=== PATIENT | female | born 1990 | race Caucasian/White ===

== ENCOUNTER 2016-07-01 13:23 | Emergency (ER) | payer OTHER ==
[2016-07-01 14:21] VITALS: RESP 18
[2016-07-01] MEDS ORDERED: SODIUM CHLORIDE 0.9% 1,000 ML IV STA (14:56)
[2016-07-01] MEDS ORDERED: ONDANSETRON 4 MG/2 ML VIAL IVP STA (15:04)
--- NOTE | 2016-07-01 15:04 | ED ---
General Adult HPI - General Chief complaint: Headache Stated complaint: Headache,Vomiting Time Seen by Provider: 07/01/16 14:44 Source: patient, RN notes reviewed Mode of arrival: ambulatory Limitations: no limitations - History of Present Illness Initial comments: Patient 26-year-old female who presents emergency room today with multiple point. She does admit to history of migraine headaches. States that this morning approximately around noon had a episode of a migraine headache. States she was in the shower having a intense sharp pain to the right side of her head. States that she did have to take ibuprofen. She states she laid down. She states headache is gone at this time. She does admit that she's also been feeling very fatigued. She states she fells rundown at times. Does admit that she drinks a lot of caffeine. States been trying to increased water intake over the last 2 weeks. States she's felt nauseated at times. States feels somewhat "out of it" at this time. States all the symptoms have been off and on over the last several months. She denies any complaints symptoms. Patient denies any recent fever, chills, shortness of breath, chest pain, back pain, abdominal pain, nausea or vomiting, numbness or tingling, dysuria or hematuria, constipation or diarrhea, visual changes, or any other complaints. - Related Data Home Medications Medication Instructions Recorded Confirmed Mesalamine [Lialda] 1.2 gm PO DAILY 07/01/16 07/01/16 Allergies Allergy/AdvReac Type Severity Reaction Status Date / Time No Known Allergies Allergy Verified 07/01/16 15:10 Review of Systems ROS Statement: Those systems with pertinent positive or pertinent negative responses have been documented in the HPI. ROS Other: All systems not noted in ROS Statement are negative. Past Medical History Additional Past Medical History / Comment(s): chrons, headache, History of Any Multi-Drug Resistant Organisms: None Reported Past Surgical History: Adenoidectomy, Tonsillectomy Additional Past Surgical History / Comment(s): right tube removed, D&C, Past Psychological History: Anxiety Smoking Status: Never smoker Past Alcohol Use History: None Reported Past Drug Use History: None Reported General Exam - General Exam Comments Initial Comments: General: The patient is awake and alert, in no distress, and does not appear acutely ill. Eye: Pupils are equal, round and reactive to light, extra-ocular movements are intact. No nystagmus. There is normal conjunctiva bilaterally. No signs of icterus. Ears, nose, mouth and throat: There are moist mucous membranes and no oral lesions. Neck: The neck is supple, there is no tenderness or JVD. Cardiovascular: There is a regular rate and rhythm. No murmur, rub or gallop is appreciated. Respiratory: Lungs are clear to auscultation, respirations are non-labored, breath sounds are equal. No wheezes, stridor, rales, or rhonchi. Gastrointestinal: Soft, non-distended, non-tender abdomen without masses or organomegaly noted. There is no rebound or guarding present. No CVA tenderness. Bowel sounds are unremarkable. Musculoskeletal: Normal ROM, no tenderness. Strength 5/5. Sensation intact. Pulses equal bilaterally 2+. Neurological: A&O x 3. CN II-XII intact, There are no obvious motor or sensory deficits. Coordination appears grossly intact. Speech is normal. Skin: Skin is warm and dry and no rashes or lesions are noted. Psychiatric: Cooperative, appropriate mood & affect, normal judgment. Limitations: no limitations Course Vital Signs 07/01/16 14:15 Temperature 98.4 F Pulse Rate 95 Respiratory 18 Rate Blood Pressure 117/78 O2 Sat by Pulse 99 Oximetry Medical Decision Making - Medical Decision Making Patient reexamined at this time shows no signs of distress. She denies any headache. Denies any complaints. Patient's labs been reviewed and are unremarkable. Results were discussed with the patient. Feeling better after IV fluids. Patient is advised to increase oral fluids. Advised follow-up the family doctor or neurologist. Advised return to emergency room if any symptoms increase worsen or for any other concerns. - Lab Data Result diagrams: 07/01/16 15:20 07/01/16 15:20 Lab Results 07/01/16 07/01/16 07/01/16 Range/Units 15:20 15:20 15:20 WBC 5.6 (3.8-10.6) k/uL RBC 4.69 (3.80-5.40) m/uL Hgb 13.1 (11.4-16.0) gm/dL Hct 41.2 (34.0-46.0) % MCV 87.8 (80.0-100.0) fL MCH 27.9 (25.0-35.0) pg MCHC 31.7 (31.0-37.0) g/dL RDW 14.5 (11.5-15.5) % Plt Count 141 L (150-450) k/uL Neutrophils % 63 % Lymphocytes % 26 % Monocytes % 5 % Eosinophils % 3 % Basophils % 1 % Neutrophils # 3.6 (1.3-7.7) k/uL Lymphocytes # 1.5 (1.0-4.8) k/uL Monocytes # 0.3 (0-1.0) k/uL Eosinophils # 0.2 (0-0.7) k/uL Basophils # 0.1 (0-0.2) k/uL Sodium 141 (137-145) mmol/L Potassium 4.3 (3.5-5.1) mmol/L Chloride 104 (98-107) mmol/L Carbon Dioxide 26 (22-30) mmol/L Anion Gap 11 mmol/L BUN 13 (7-17) mg/dL Creatinine 0.70 (0.52-1.04) mg/dL Est GFR (MDRD) Af Amer >60 (>60 ml/min/1.73 sqM) Est GFR (MDRD) Non-Af >60 (>60 ml/min/1.73 sqM) Glucose 84 (74-99) mg/dL Calcium 9.4 (8.4-10.2) mg/dL Total Bilirubin 0.7 (0.2-1.3) mg/dL AST 17 (14-36) U/L ALT 25 (9-52) U/L Alkaline Phosphatase 76 (38-126) U/L Total Protein 7.5 (6.3-8.2) g/dL Albumin 4.7 (3.5-5.0) g/dL TSH 1.610 (0.465-4.680) mIU/L Urine Color Urine Appearance (Clear) Urine pH (5.0-8.0) Ur Specific [place] (1.001-1.035) Urine Protein (Negative) Urine Glucose (UA) (Negative) Urine Ketones (Negative) Urine Blood (Negative) Urine Nitrate (Negative) Urine Bilirubin (Negative) Urine Urobilinogen (<2.0) mg/dL Ur Leukocyte Esterase (Negative) Urine RBC (0-5) /hpf Urine WBC (0-5) /hpf Ur Squamous Epith Cells (0-4) /hpf Urine Bacteria (None) /hpf Urine Mucus (None) /hpf Urine HCG, Qual Not Detected (Not Detectd) 07/01/16 Range/Units 15:20 WBC (3.8-10.6) k/uL RBC (3.80-5.40) m/uL Hgb (11.4-16.0) gm/dL Hct (34.0-46.0) % MCV (80.0-100.0) fL MCH (25.0-35.0) pg MCHC (31.0-37.0) g/dL RDW (11.5-15.5) % Plt Count (150-450) k/uL Neutrophils % % Lymphocytes % % Monocytes % % Eosinophils % % Basophils % % Neutrophils # (1.3-7.7) k/uL Lymphocytes # (1.0-4.8) k/uL Monocytes # (0-1.0) k/uL Eosinophils # (0-0.7) k/uL Basophils # (0-0.2) k/uL Sodium (137-145) mmol/L Potassium (3.5-5.1) mmol/L Chloride (98-107) mmol/L Carbon Dioxide (22-30) mmol/L Anion Gap mmol/L BUN (7-17) mg/dL Creatinine (0.52-1.04) mg/dL Est GFR (MDRD) Af Amer (>60 ml/min/1.73 sqM) Est GFR (MDRD) Non-Af (>60 ml/min/1.73 sqM) Glucose (74-99) mg/dL Calcium (8.4-10.2) mg/dL Total Bilirubin (0.2-1.3) mg/dL AST (14-36) U/L ALT (9-52) U/L Alkaline Phosphatase (38-126) U/L Total Protein (6.3-8.2) g/dL Albumin (3.5-5.0) g/dL TSH (0.465-4.680) mIU/L Urine Color Yellow Urine Appearance Cloudy H (Clear) Urine pH 6.0 (5.0-8.0) Ur Specific [place] 1.018 (1.001-1.035) Urine Protein Negative (Negative) Urine Glucose (UA) Negative (Negative) Urine Ketones Negative (Negative) Urine Blood Negative (Negative) Urine Nitrate Negative (Negative) Urine Bilirubin Negative (Negative) Urine Urobilinogen <2.0 (<2.0) mg/dL Ur Leukocyte Esterase Negative (Negative) Urine RBC 1 (0-5) /hpf Urine WBC 2 (0-5) /hpf Ur Squamous Epith Cells 6 H (0-4) /hpf Urine Bacteria Rare H (None) /hpf Urine Mucus Rare H (None) /hpf Urine HCG, Qual (Not Detectd) Disposition Clinical Impression: Lightheaded, Nausea, Migraine Disposition: HOME SELF-CARE Condition: Good Instructions: Acute Headache (ED) Additional Instructions: Please follow-up with family doctor in the next 2 days of symptoms have not improved. Please return to emergency room if the symptoms increase or worsen or for any other concerns. Referrals: None,Stated [Primary Care Provider] - 1-2 days Kelsea Burden MD [REFERRING] - 1-2 days Maricel Fisher MD [STAFF PHYSICIAN] - 1-2 days Time of Disposition: 16:30
[2016-07-01 15:29] LABS: Basophils # (A) 0.1 k/uL (0-0.2); Basophils % (A) 1 %; CHCM 33.2; Eosinophils # (A) 0.2 k/uL (0-0.7); Eosinophils % (A) 3 %; HCT 41.2 % (34.0-46.0); HDW 2.47; HGB 13.1 gm/dL (11.4-16.0); Luc # (Auto) 0.08; Luc % (Auto) 1; Lymphocytes # (A) 1.5 k/uL (1.0-4.8); Lymphocytes % (A) 26 %; MCH 27.9 pg (25.0-35.0); MCHC 31.7 g/dL (31.0-37.0); MCV 87.8 fL (80.0-100.0); Mean Platelet Volume 9.3; Monocytes # (A) 0.3 k/uL (0-1.0); Monocytes % (A) 5 %; Neutrophils # (A) 3.6 k/uL (1.3-7.7); Neutrophils % (A) 63 %; RBC 4.69 m/uL (3.80-5.40); RDW 14.5 % (11.5-15.5); WBC 5.6 k/uL (3.8-10.6); WBC (Perox) 5.97
[2016-07-01 15:33] LABS: Appearance,Urine Cloudy (Clear); Bacteria,Urine Rare /hpf; Bilirubin,Urine Negative (Negative); Glucose,Urine (UA) Negative (Negative); Ketones,Urine Negative (Negative); Leukocyte Esterase,Urine Negative (Negative); Mucus,Urine Rare /hpf; Nitrite,Urine Negative (Negative); Particle Count 5207; Protein,Urine Negative (Negative); RBC,Urine 1 /hpf (0-5); Specific Gravity,Urine 1.018 (1.001-1.035); Squamous Epithelial Cell,Urine 6 /hpf (0-4); UA Billing (MACRO vs. MICRO) MICRO; Urobilinogen,Urine <2.0 mg/dL (<2.0); WBC,Urine 2 /hpf (0-5)
[2016-07-01 15:40] LABS: ALT 25 U/L (9-52); AST 17 U/L (14-36); Alkaline Phosphatase 76 U/L (38-126); Anion Gap 11 mmol/L; Blood Urea Nitrogen 13 mg/dL (7-17); Calcium 9.4 mg/dL (8.4-10.2); Carbon Dioxide 26 mmol/L (22-30); Chloride 104 mmol/L (98-107); Glucose 84 mg/dL (74-99); Non-African American GFR(MDRD) >60 (>60 ml/min/1.73 sqM); Potassium 4.3 mmol/L (3.5-5.1); Sodium 141 mmol/L (137-145); Total Bilirubin 0.7 mg/dL (0.2-1.3); Total Protein 7.5 g/dL (6.3-8.2)
[2016-07-01 16:38] VITALS: BP 114/65; PULSE 86; TEMP 98
== END 2016-07-01 16:37 | disposition home or self-care (01) ==
LOC: EC 13:23
DX: G43.909 Migraine, unspecified, not intractable, without status migrainosus (principal); Z79.899 Other long term (current) drug therapy; K50.90 Crohn's disease, unspecified, without complications
CPT/HCPCS: 36415; 80053; 84443; 85025; 81001; 81025; 96374; 99284; J2405

== ENCOUNTER 2022-04-20 02:32 | Outpatient (CLI) | payer OTHER ==
[2022-04-20] MEDS: LACTATED RINGERS 1,000 ML IV SCH ×4 (03:20→07:55)
[2022-04-20] MEDS ORDERED: BETAMET ACET-BETAMETH SOD PHOS 6 MG/ML MDV IM SCH (03:30)
[2022-04-20 03:38] LABS: Basophils # (A) 0.1 k/uL (0-0.2); Basophils % (A) 1 %; Eosinophils # (A) 0.2 k/uL (0-0.7); Eosinophils % (A) 2 %; HGB 9.9 gm/dL (11.4-16.0); Hypochromasia Slight; Lymphocytes # (A) 1.9 k/uL (1.0-4.8); Lymphocytes % (A) 20 %; MCH 27.6 pg (25.0-35.0); MCV 83.8 fL (80.0-100.0); Mean Platelet Volume 8.8; Monocytes # (A) 0.6 k/uL (0-1.0); Monocytes % (A) 6 %; Neutrophils # (A) 6.6 k/uL (1.3-7.7); Neutrophils % (A) 68 %; Platelet Count 189 k/uL (150-450); Poikilocytosis Slight; RBC 3.58 m/uL (3.80-5.40); RDW 15.8 % (11.5-15.5); WBC 9.6 k/uL (3.8-10.6)
--- NOTE | 2022-04-20 06:40 | US ---
EXAMINATION TYPE: US OB >= 14 wk fetus DATE OF EXAM: 04/20/2022 COMPARISON: None CLINICAL HISTORY: bleeding TECHNIQUE: Transabdominal (TA) GESTATIONAL AGE / DATING Physician Established: (33 weeks/5 days) EDC: 06/03/2022 Dates by LMP: LMP unknown Dates by First Scan: No previous here Dates by Current Scan: (33 weeks/5 days) EDC: 06/03/2022 SURVEY IUP: Single PLACENTA: Anterior PREVIA: No Previa EMETERIO: 16.0 cm Normal CERVICAL LENGTH (transabdominal: norm > 3.0cm): 3.1 cm BIOMETRY PRESENTATION: Breech BPD: 8.4 cm 34 weeks / 0 days HC: 30.7 cm 34 weeks / 2 days AC: 27.8 cm 32 weeks / 0 days FL: 6.7 cm 34 weeks / 3 days ESTIMATED WEIGHT IN GRAMS: 2109 grams ESTIMATED WEIGHT IN LBS/OZ: 4 lbs. 10 oz. WEIGHT PERCENTAGE BASED ON ESTABLISHED DATES: 24% HC/AC: 1.10 Normal FL/AC: 24% Normal HEART RATE: 158 bpm RHYTHM: Normal Single live intrauterine gestation. No cervical thinning. Breech presentation currently. No placenta previa. Estimated amniotic fluid index within normal limits. The biometry measurements congruen t and pelvis within normal limits for expected date of confinement. IMPRESSION: As above.
[2022-04-20 07:53] VITALS: BP 130/73; PULSE 90; RESP 16; TEMP 97.8
--- NOTE | 2022-04-21 09:37 | P.MSEPDOC ---
Presenting Problems - Arrival Data Date of Arrival on Unit: 04/20/22 Time of Arrival on Unit: 02:32 Mode of Transport: Ambulatory - Complaint OB-Reason for Admission/Chief Complaint: Vaginal Bleeding Comment: Patient arrived tonight to triage stating that she had bright red bleeding. that started at 0150. Patient stated that she also had a clot the size larger than a. quarter. Patient sees [facility] Physician and was high risk for Ulcerative. Colitis but is now no longer high risk per patient. Patient denies pain and states she. has had sexual intercourse in the past 24 hours. Medical History - Information : 7 Para: 3 Number of Living Children: 3 - Gestational Age Gestational Age by KATHY (wks/days): 33 Weeks and 5 Days Review of Systems - Review of Systems Constitutional: No problems Breast: No problems ENT: No problems Cardiovascular: No problems Respiratory: No problems Gastrointestinal: No problems Genitourinary: No problems Musculoskeletal: No problems Neurological: No problems Skin: No problems Vital Signs - Temperature Temperature: 97.8 F Temperature Source: Temporal Artery Scan - Pulse Pulse Oximetery Pulse Rate: 90 Pulse Assessment Method: Automatic Cuff - Respirations Respiratory Rate: 16 Oxygen Delivery Method: Room Air O2 Sat by Pulse Oximetry: 99 - Blood Pressure Right Arm Blood Pressure: 130/73 Blood Pressure Mean: 92 Blood Pressure Source: Automatic Cuff Medical Screen Scoring - Assessment - Baby A Baseline FHR: 120 Heart Rate - NICHD Category: Category I (Normal) NST: Reactive Physician Notification - Physician Notified Physician Notified Date: 04/20/22 Physician Notified Time: 03:05 Physician: Dr. Hernandez New Order Received: Yes - Notification Comment Comment: Orders to start IV fluids, CBC, Celestone steroid shot, and monitor patient. [address] Hernandez at bedside 0740 assess pt. orders to discharge patient home pt. is to see her tomorrow and get her 2nd dose of celestone at that time Maternal Triage Index - Maternal Triage Index Presenting for scheduled procedure w/no complaint: No - Stat/Priority 1 Stat Priority 1: No - Urgent/Priority 2 Urgent Priority 2: Yes Provider Notified: Dr. Hernandez Provider Notified Time: 03:05 Criteria Met for Priority 2: pt. is 33weeks and 5 days,c/o bleeding Disposition - Disposition OB Disposition: Physician follow up in office, Discharge to home Discharge Date: 04/20/22 Discharge Time: 07:52 I agree with the RN Medical Screening Exam: Yes Case reviewed; plan agreed upon as documented in EMR&OBIX.: Yes Diagnosis: RELATED CONDITIONS, UNSPECIFIED, THIRD TRIMESTER
== END 2022-04-20 07:52 | disposition home or self-care (01) ==
LOC: FBPOP 02:32
PROVIDERS: ATTEND Obstetrics & Gynecology
DX: O26.893 Other specified pregnancy related conditions, third trimester (principal); Z3A.33 33 weeks gestation of pregnancy; D69.9 Hemorrhagic condition, unspecified
CPT/HCPCS: 59025; 96360; 96361; 96372; 85025; 76805; G0463; J0702; 99215

== ENCOUNTER 2023-01-25 12:39 | Emergency (ER) | payer OTHER ==
--- NOTE | 2023-01-25 13:35 | ED ---
Female Urogenital HPI - General Source: patient, RN notes reviewed Mode of arrival: ambulatory Limitations: no limitations - History of Present Illness MD Complaint: vaginal bleeding, pelvic pain <Ida Chavarria - Last Filed: 01/25/23 13:32> <Yanet Zayas - Last Filed: 01/26/23 20:20> - General Chief complaint: Vaginal Bleeding Stated complaint: vaginal bleeding Time Seen by Provider: 01/25/23 13:32 - History of Present Illness Initial comments: This is a 32-year-old female who presents to the emergency department for vaginal bleeding and pelvic pain. Symptoms started a few days ago. Denies any concern for , as she has a hx of bilateral salpingectomy. Also denies any concern for STDs. Denies any associated nausea or vomiting. (Ida Chavarria) Quick note reviewed: This is a 32-year-old female who presents to the emergency department with a chief complaint of vaginal bleeding and pelvic pain. Patient reports that her last menstrual period started on 01/12/2023. She reports light vaginal bleeding ever since. She is not passing any heavy clots. She does voice that she believes she may be . She denies any dizziness, lightheadedness, shortness of breath, fatigue. Reports bilateral salpingectomy. She denies any concern for STD. She denies any fever, chills, nausea or vomiting, flank pain. (Yanet Zayas) - Related Data Home Medications Medication Instructions Recorded Confirmed No Known Home Medications 04/20/22 04/20/22 Allergies Allergy/AdvReac Type Severity Reaction Status Date / Time No Known Allergies Allergy Verified 01/25/23 13:04 Review of Systems ROS Other: All systems not noted in ROS Statement are negative. <Ida Chavarria - Last Filed: 01/25/23 13:32> ROS Other: All systems not noted in ROS Statement are negative. <Yanet Zayas - Last Filed: 01/26/23 20:20> ROS Statement: Those systems with pertinent positive or pertinent negative responses have been documented in the HPI. Past Medical History Additional Past Medical History / Comment(s): headache, ulverative colitis History of Any Multi-Drug Resistant Organisms: None Reported Past Surgical History: Adenoidectomy, Tonsillectomy Additional Past Surgical History / Comment(s): hilda tube removed, D&C, Past Psychological History: Anxiety Smoking Status: Never smoker Past Alcohol Use History: None Reported Past Drug Use History: None Reported <Ida Chavarria - Last Filed: 01/25/23 13:32> General Exam Limitations: no limitations <Ida Chavarria - Last Filed: 01/25/23 13:32> <Yanet Zayas - Last Filed: 01/26/23 20:20> - General Exam Comments Initial Comments: Visual Physical Exam Vital signs reviewed General: Well-appearing, nontoxic, no acute distress. Head: Normocephalic, atraumatic Eyes: PERRLA, EOMI ENT: Airway patent Chest: Nonlabored breathing Skin: No visual rash, normal skin tone Neuro: Alert and oriented 3 Musculoskeletal: No gross abnormalities I performed the QuickNote portion of this chart. Signed Ida Chavarria PA-C. (Ida Chavarria) General: Alert, in no acute distress Head: atraumatic normocephalic. Eyes PERRL, EOMI intact, mucous membranes moist Respiratory: Lungs clear to auscultation bilaterally Cardiovascular: Rate regular rate and rhythm Abdominal: Soft without guarding or rebound Extremities: Normal inspection with full range of motion and normal capillary refill Neuroogic: alert and oriented 3, CN II-XII intact, able to ambulate with steady gait Skin: warm dry and intact with normal color : external exam is without any rashes, lesions, erythema. Vaginal canal with scant red bloood, no clots. Cervical os is visualized and is closed. There is no cervical motion tenderness for abnormal adnexal tenderness. Pelvic exam performed with Rema galicia RN present. (Yanet Zayas) Course Vital Signs 01/25/23 01/25/23 12:59 16:50 Temperature 98.3 F 97.8 F Pulse Rate 110 H 80 Respiratory 20 18 Rate Blood Pressure 119/77 113/74 O2 Sat by Pulse 95 98 Oximetry Medical Decision Making - Lab Data Result diagrams: 01/25/23 13:57 01/25/23 13:57 <Yanet Zayas - Last Filed: 01/26/23 20:20> - Medical Decision Making Was pt. sent in by a medical professional or institution ([employer], HUMAN RELATIONS MANAGER, urgent care, hospital, or fdc...) When possible be specific @ -[No] Did you speak to anyone other than the patient for history (EMS, parent, family, police, friend...)? What history was obtained from this source @ -[No] Did you review nursing and triage notes (agree or disagree)? Why? @ -[I reviewed and agree with nursing and triage notes] Were old charts reviewed (outside hosp., previous admission, EMS record, old EKG, old radiological studies, urgent care reports/EKG's, fdc records)? Report findings @ -[No old charts were reviewed] Differential Diagnosis (chest pain, altered mental status, abdominal pain women, abdominal pain men, vaginal bleeding, weakness, fever, dyspnea, syncope, headache, dizziness, GI bleed, back pain, seizure, CVA, palpatations, mental health, musculoskeletal)? @ -[not applicable] EKG interpreted by me (3pts min.). @ -[As above] X-rays interpreted by me (1pt min.). @ -[None done] CT interpreted by me (1pt min.). @ -[None done] U/S interpreted by me (1pt. min.). @ Pelvic ultrasound does not reveal any gross abnormality or pelvic pathology What testing was considered but not performed or refused? (CT, X-rays, U/S, labs)? Why? @ -[None] What meds were considered but not given or refused? Why? @ -[None] Did you discuss the management of the patient with other professionals (professionals i.e. [employer], HUMAN RELATIONS MANAGER, lab, RT, psych nurse, social staff worker, mobile application engineer, teacher, electronic intelligence officer, test case developer)? Give summary @ -[No] Was smoking cessation discussed for >3mins.? @ -[No] Was critical care preformed (if so, how long)? @ -[No] Were there social determinants of health that impacted care today? How? (Homelessness, low income, unemployed, alcoholism, drug addiction, transportation, low edu. Level, literacy, decrease access to med. care, longterm, rehab)? @ -[No] Was there de-escalation of care discussed even if they declined (Discuss DNR or withdrawal of care, Hospice)? DNR status @ -[No] What co-morbidities impacted this encounter? (DM, HTN, Smoking, COPD, CAD, Cancer, CVA, ARF, Chemo, Hep., AIDS, mental health diagnosis, sleep apnea, morbid obesity)? @ -[None] Was patient admitted / discharged? Hospital course, mention meds given and route, prescriptions, significant lab abnormalities, going to OR and other pertinent info. @ -Discharge. This is a pleasant 32-year-old female who presents to the emergency department with vaginal bleeding. Patient had a thorough history and physical exam performed on the emergency department. Physical exam is essentially unremarkable. Pelvic exam reveals scant dark red blood in the vaginal vault. Cervical os visualized and closed. No adnexal tenderness. Patient had lab work and imaging which was essentially unremarkable. Patient was offered STD testing however she declined at the time of evaluation. Pelvic ultrasound does not reveal any acute ABNORMALITY. No IUP visualized. I discussed the results in detail with the patient verbalized understanding and questions were addressed. Patient is agreeable with the plan for discharge. Patient discharged in stable condition with strict parameters discussed. Recommend close follow-up with PCP in 1-2 days. She is provided old SOCIAL WORK MANAGER physicians in the area. Case discussed with Dr. Leonard [facility] who agrees with plan of care Undiagnosed new problem with uncertain prognosis? @ -[No] Drug Therapy requiring intensive monitoring for toxicity (Heparin, Nitro, Insulin, Cardizem)? @ -[No] Were any procedures done? @ -[No] Diagnosis/symptom? @ -Menorrhagia Acute, or Chronic, or Acute on Chronic? @ Acute Uncomplicated (without systemic symptoms) or Complicated (systemic symptoms)? @ -Uncomplicated Side effects of treatment? @ -[No] Exacerbation, Progression, or Severe Exacerbation? @ -[No] Poses a threat to life or bodily function? How? (Chest pain, [place], [place], pneumonia, PE, COPD, DKA, ARF, appy, cholecystitis, CVA, Diverticulitis, Homicidal, Suicidal, threat to staff... and all critical care pts) @ -Low likelihood (Yanet Zayas) - Lab Data Lab Results 01/25/23 01/25/23 01/25/23 Range/Units 13:57 13:57 14:41 WBC 5.1 (3.8-10.6) k/uL RBC 4.29 (3.80-5.40) m/uL Hgb 11.4 (11.4-16.0) gm/dL Hct 35.9 (34.0-46.0) % MCV 83.7 (80.0-100.0) fL MCH 26.7 (25.0-35.0) pg MCHC 31.8 (31.0-37.0) g/dL RDW 14.1 (11.5-15.5) % Plt Count 207 (150-450) k/uL MPV 9.9 Neutrophils % 58 % Lymphocytes % 31 % Monocytes % 5 % Eosinophils % 3 % Basophils % 0 % Neutrophils # 3.0 (1.3-7.7) k/uL Lymphocytes # 1.6 (1.0-4.8) k/uL Monocytes # 0.3 (0-1.0) k/uL Eosinophils # 0.1 (0-0.7) k/uL Basophils # 0.0 (0-0.2) k/uL Hypochromasia Slight Sodium 137 (137-145) mmol/L Potassium 4.3 (3.5-5.1) mmol/L Chloride 104 (98-107) mmol/L Carbon Dioxide 24 (22-30) mmol/L Anion Gap 9 mmol/L BUN 10 (7-17) mg/dL Creatinine 0.75 (0.52-1.04) mg/dL Est GFR (CKD-EPI)AfAm >90 (>60 ml/min/1.73 sqM) Est GFR (CKD-EPI)NonAf >90 (>60 ml/min/1.73 sqM) Glucose 82 (74-99) mg/dL Calcium 9.3 (8.4-10.2) mg/dL Total Bilirubin 0.5 (0.2-1.3) mg/dL AST 25 (14-36) U/L ALT 15 (4-34) U/L Alkaline Phosphatase 64 (38-126) U/L Total Protein 7.6 (6.3-8.2) g/dL Albumin 4.8 (3.5-5.0) g/dL Urine Color Light Yellow Urine Appearance Clear (Clear) Urine pH 5.0 (5.0-8.0) Ur Specific [place] 1.007 (1.001-1.035) Urine Protein Negative (Negative) Urine Glucose (UA) Negative (Negative) Urine Ketones Negative (Negative) Urine Blood Small H (Negative) Urine Nitrite Negative (Negative) Urine Bilirubin Negative (Negative) Urine Urobilinogen <2.0 (<2.0) mg/dL Ur Leukocyte Esterase Negative (Negative) Urine WBC <1 (0-5) /hpf Ur Squamous Epith Cells <1 (0-4) /hpf Urine Mucus Rare H (None) /hpf Urine HCG, Qual (Not Detectd) 01/25/23 Range/Units 14:41 WBC (3.8-10.6) k/uL RBC (3.80-5.40) m/uL Hgb (11.4-16.0) gm/dL Hct (34.0-46.0) % MCV (80.0-100.0) fL MCH (25.0-35.0) pg MCHC (31.0-37.0) g/dL RDW (11.5-15.5) % Plt Count (150-450) k/uL MPV Neutrophils % % Lymphocytes % % Monocytes % % Eosinophils % % Basophils % % Neutrophils # (1.3-7.7) k/uL Lymphocytes # (1.0-4.8) k/uL Monocytes # (0-1.0) k/uL Eosinophils # (0-0.7) k/uL Basophils # (0-0.2) k/uL Hypochromasia Sodium (137-145) mmol/L Potassium (3.5-5.1) mmol/L Chloride (98-107) mmol/L Carbon Dioxide (22-30) mmol/L Anion Gap mmol/L BUN (7-17) mg/dL Creatinine (0.52-1.04) mg/dL Est GFR (CKD-EPI)AfAm (>60 ml/min/1.73 sqM) Est GFR (CKD-EPI)NonAf (>60 ml/min/1.73 sqM) Glucose (74-99) mg/dL Calcium (8.4-10.2) mg/dL Total Bilirubin (0.2-1.3) mg/dL AST (14-36) U/L ALT (4-34) U/L Alkaline Phosphatase (38-126) U/L Total Protein (6.3-8.2) g/dL Albumin (3.5-5.0) g/dL Urine Color Urine Appearance (Clear) Urine pH (5.0-8.0) Ur Specific [place] (1.001-1.035) Urine Protein (Negative) Urine Glucose (UA) (Negative) Urine Ketones (Negative) Urine Blood (Negative) Urine Nitrite (Negative) Urine Bilirubin (Negative) Urine Urobilinogen (<2.0) mg/dL Ur Leukocyte Esterase (Negative) Urine WBC (0-5) /hpf Ur Squamous Epith Cells (0-4) /hpf Urine Mucus (None) /hpf Urine HCG, Qual Not Detected (Not Detectd) Disposition <Ida Chavarria - Last Filed: 01/25/23 13:32> Is patient prescribed a controlled substance at d/c from ED?: No Time of Disposition: 16:31 <Yanet Zayas - Last Filed: 01/26/23 20:20> Clinical Impression: Menorrhagia Disposition: HOME SELF-CARE Condition: Stable Instructions (If sedation given, give patient instructions): Menorrhagia (ED) Additional Instructions: Return to the nearest emergency department if worsening condition bleeding, heavy clots, shortness of breath develop Referrals: None,Stated [Primary Care Provider] - 1-2 days Alba Hernandez DO [Doctor of Osteopathic Medicine] - 1-2 days Blanca Bejarano DO [Doctor of Osteopathic Medicine] - 1-2 days Briseida Syed MD [STAFF PHYSICIAN] - 1-2 days
[2023-01-25 14:23] LABS: Basophils % (A) 0 %; Eosinophils # (A) 0.1 k/uL (0-0.7); Eosinophils % (A) 3 %; HCT 35.9 % (34.0-46.0); HGB 11.4 gm/dL (11.4-16.0); Hypochromasia Slight; Lymphocytes # (A) 1.6 k/uL (1.0-4.8); Lymphocytes % (A) 31 %; MCH 26.7 pg (25.0-35.0); MCHC 31.8 g/dL (31.0-37.0); MCV 83.7 fL (80.0-100.0); Mean Platelet Volume 9.9; Monocytes # (A) 0.3 k/uL (0-1.0); Monocytes % (A) 5 %; Neutrophils % (A) 58 %; Platelet Count 207 k/uL (150-450); RBC 4.29 m/uL (3.80-5.40); RDW 14.1 % (11.5-15.5); WBC 5.1 k/uL (3.8-10.6)
[2023-01-25] MEDS ORDERED: SODIUM CHLORIDE 0.9% 1,000 ML IV ONE (14:32)
[2023-01-25 14:47] LABS: African American GFR (CKD) >90 (>60 ml/min/1.73 sqM); Albumin 4.8 g/dL (3.5-5.0); Blood Urea Nitrogen 10 mg/dL (7-17); Carbon Dioxide 24 mmol/L (22-30); Non-African American GFR(CKD) >90 (>60 ml/min/1.73 sqM); Total Bilirubin 0.5 mg/dL (0.2-1.3); Total Protein 7.6 g/dL (6.3-8.2)
[2023-01-25 15:07] LABS: ALT 15 U/L (4-34); AST 25 U/L (14-36); Alkaline Phosphatase 64 U/L (38-126); Anion Gap 9 mmol/L; Calcium 9.3 mg/dL (8.4-10.2); Chloride 104 mmol/L (98-107); Glucose 82 mg/dL (74-99); Potassium 4.3 mmol/L (3.5-5.1); Sodium 137 mmol/L (137-145)
[2023-01-25 15:14] LABS: Appearance,Urine Clear (Clear); Bilirubin,Urine Negative (Negative); Blood,Urine Small (Negative); Color,Urine Light Yellow; Glucose,Urine (UA) Negative (Negative); Ketones,Urine Negative (Negative); Leukocyte Esterase,Urine Negative (Negative); Mucus,Urine Rare /hpf; Nitrite,Urine Negative (Negative); Protein,Urine Negative (Negative); Specific Gravity,Urine 1.007 (1.001-1.035); Squamous Epithelial Cell,Urine <1 /hpf (0-4); Urobilinogen,Urine <2.0 mg/dL (<2.0); WBC,Urine <1 /hpf (0-5)
--- NOTE | 2023-01-25 15:58 | US ---
EXAMINATION TYPE: US transvaginal DATE OF EXAM: 01/25/2023 COMPARISON: NONE CLINICAL INDICATION: Female, 32 years old with history of vaginal bleeding; Portable EC exam TECHNIQUE: Transvaginal (TV). Date of LMP: 01/12/2023, EXAM MEASUREMENTS: Uterus: 9.5 x 5.9 x 5.2 cm Endometrial Stripe: 0.4 cm Right Ovary: 3.5 x 2.2 x 1.8 cm Left Ovary: 3.1 x 1.9 x 2.4 cm 1. Uterus: Anteverted Peripheral vascularity seen. 2. Endometrium: wnl 3. Right Ovary: follicles seen 4. Left Ovary: follicles seen Spectral, color and waveform doppler imaging shows good arterial and venous flow within the ovaries ; there is no evidence for ovarian torsion. 5. Bilateral Adnexa: wnl 6. Posterior cul-de-sac: free fluid IMPRESSION: 1. No acute ultrasound abnormality pelvic ultrasound
[2023-01-25 16:52] VITALS: BP 113/74; PULSE 80; RESP 18; TEMP 97.8
== END 2023-01-25 16:50 | disposition home or self-care (01) ==
LOC: EC 12:39
DX: N92.0 Excessive and frequent menstruation with regular cycle (principal); Z86.59 Personal history of other mental and behavioral disorders
CPT/HCPCS: 36415; 76830; 80053; 81001; 81025; 85025; 93975; 96360; 99284

== ENCOUNTER → 2023-05-03 | Outpatient (CLI) | payer OTHER ==
[2023-05-03 21:57] LABS: Hepatitis A Antibody IgM Nonreactive; Hepatitis B Core IgM Nonreactive; Hepatitis B Surface Antigen Nonreactive; Hepatitis C IgG Antibody Nonreactive
== END | disposition home or self-care (01) ==
LOC: LABWHC1 14:18
PROVIDERS: ATTEND Colon & Rectal Surgery
DX: K51.00 Ulcerative (chronic) pancolitis without complications (principal); Z79.899 Other long term (current) drug therapy
CPT/HCPCS: 36415; 80074; 86480

== ENCOUNTER 2023-06-04 13:52 | Emergency (ER) | payer OTHER ==
--- NOTE | 2023-06-04 14:38 | ED ---
General Adult HPI <Raymond Christopher - Last Filed: 06/04/23 14:38> <Wendy Almanza - Last Filed: 06/05/23 02:15> - General Stated complaint: Hives Time Seen by Provider: 06/04/23 14:38 - History of Present Illness Initial comments: 32 year old Female presenting to the ED with a chief complaint of rash. States that she experiences this rash whenever she gets cold. States that the only thing that improves this rash is complaining of Or Running Affected Areas under Hot Water. Patient also notes a history of anemia. (Raymond Christopher) 32-year-old female presents emergency department reporting rash. States that it has been going on for the past couple of months however has worsened in the past week. She states that when she gets exposed to cold air or water that she develops a rash. This has happened to the patient previously a few years ago however it was limited and self resolved. States that she has been taking hot baths in order to alleviate the rash. She has attempted to take Benadryl and some prednisone with minimal improvement in her symptoms. Today she did call her GI doctor she does have ulcerative colitis. They recommended that she take an extra prednisone because of her symptoms. Patient is currently on a long taper of steroids and is currently taking 10 mg a day. States that she took an extra tablet today because of the GI recommendations. She denies any other exposures to new products or foods. No known ALLERGIES. No other alleviating, precipitating or modifying factors (Wendy Almanza) - Related Data Previous Rx's Medication Instructions Recorded Cyclobenzaprine [Flexeril] 10 mg PO HS PRN #15 tab 03/08/23 Ketorolac [Toradol] 10 mg PO Q6HR PRN #12 tab 03/08/23 hydrOXYzine HCL [Atarax] 25 mg PO QID PRN #30 tab 06/04/23 predniSONE [Deltasone] 20 mg PO BID #10 tab 06/04/23 Allergies Allergy/AdvReac Type Severity Reaction Status Date / Time No Known Allergies Allergy Verified 06/04/23 14:38 Review of Systems ROS Other: All systems not noted in ROS Statement are negative. <Raymond Christopher - Last Filed: 06/04/23 14:38> ROS Other: All systems not noted in ROS Statement are negative. <Wendy Almanza - Last Filed: 06/05/23 02:15> ROS Statement: Those systems with pertinent positive or pertinent negative responses have been documented in the HPI. Past Medical History Additional Past Medical History / Comment(s): headache, ulverative colitis History of Any Multi-Drug Resistant Organisms: None Reported Past Surgical History: Adenoidectomy, Tonsillectomy Additional Past Surgical History / Comment(s): hilda tube removed, D&C, Past Psychological History: Anxiety Smoking Status: Never smoker Past Alcohol Use History: None Reported Past Drug Use History: None Reported <Raymond Christopher - Last Filed: 06/04/23 14:38> General Exam <CandiRaymond - Last Filed: 06/04/23 14:38> General appearance: alert, in no apparent distress Head exam: Present: atraumatic, normocephalic, normal inspection Eye exam: Present: normal appearance, PERRL, EOMI. Absent: scleral icterus, conjunctival injection, periorbital swelling ENT exam: Present: normal exam, mucous membranes moist Neck exam: Present: normal inspection. Absent: tenderness, meningismus, lymp hadenopathy Respiratory exam: Present: normal lung sounds bilaterally. Absent: respiratory distress, wheezes, rales, rhonchi, stridor Cardiovascular Exam: Present: regular rate, normal rhythm, normal heart sounds. Absent: systolic murmur, diastolic murmur, rubs, gallop, clicks GI/Abdominal exam: Present: soft, normal bowel sounds. Absent: distended, tenderness, guarding, rebound, rigid Extremities exam: Present: normal inspection, full ROM, normal capillary refill. Absent: tenderness, pedal edema, joint swelling, calf tenderness Back exam: Present: normal inspection Neurological exam: Present: alert, oriented X3, CN II-XII intact Psychiatric exam: Present: normal affect, normal mood Skin exam: Present: warm, dry, intact, normal color, rash (Rash is not present at this time) <Wendy Almanza - Last Filed: 06/05/23 02:15> - General Exam Comments Initial Comments: Visual Physical Exam Vital signs reviewed General: Well-appearing, nontoxic, no acute distress. Head: Normocephalic, atraumatic Eyes: PERRLA, EOMI ENT: Airway patent Chest: Nonlabored breathing Skin: No visual rash, normal skin tone Neuro: Alert and oriented 3 Musculoskeletal: No gross abnormalities (Raymond Christopher) Course Vital Signs 06/04/23 06/04/23 14:36 16:03 Temperature 98 F 98.7 F Pulse Rate 90 87 Respiratory 18 16 Rate Blood Pressure 124/88 120/94 O2 Sat by Pulse 98 99 Oximetry Medical Decision Making <Raymond Christopher - Last Filed: 06/04/23 14:38> <Wendy Almanza - Last Filed: 06/05/23 02:15> - Medical Decision Making Quicknote portion performed. Signed Raymond Christopher PA-C (Raymond Christopher) Was pt. sent in by a medical professional or institution ([facility], [facility], urgent care, hospital, or usp...) When possible be specific @ -No Did you speak to anyone other than the patient for history (EMS, parent, family, police, friend...)? What history was obtained from this source @ -No Did you review nursing and triage notes (agree or disagree)? Why? @ -I reviewed and agree with nursing and triage notes Were old charts reviewed (outside hosp., previous admission, EMS record, old EKG, old radiological studies, urgent care reports/EKG's, usp records)? Report findings @ -No old charts were reviewed Differential Diagnosis (chest pain, altered mental status, abdominal pain women, abdominal pain men, vaginal bleeding, weakness, fever, dyspnea, syncope, headache, dizziness, GI bleed, back pain, seizure, CVA, palpatations, mental health, musculoskeletal)? @ -Urticaria, allergic reaction, viral syndrome, cutaneous manifestation of IBD EKG interpreted by me (3pts min.). @ -Not done X-rays interpreted by me (1pt min.). @ -None done CT interpreted by me (1pt min.). @ -None done U/S interpreted by me (1pt. min.). @ -None done What testing was considered but not performed or refused? (CT, X-rays, U/S, labs)? Why? @ -None What meds were considered but not given or refused? Why? @ -None Did you discuss the management of the patient with other professionals (professionals i.e. , PA, [facility], lab, RT, psych nurse, psychiatric social worker supervisor, mineral economist, teacher, founder and chief executive officer, porter sample case)? Give summary @ -No Was smoking cessation discussed for >3mins.? @ -No Was critical care preformed (if so, how long)? @ -No Were there social determinants of health that impacted care today? How? (Homelessness, low income, unemployed, alcoholism, drug addiction, transportation, low edu. Level, literacy, decrease access to med. care, senior care, rehab)? @ -No Was there de-escalation of care discussed even if they declined (Discuss DNR or withdrawal of care, Hospice)? DNR status @ -No What co-morbidities impacted this encounter? (DM, HTN, Smoking, COPD, CAD, Cancer, CVA, ARF, Chemo, Hep., AIDS, mental health diagnosis, sleep apnea, morbid obesity)? @ -Ulcerative colitis Was patient admitted / discharged? Hospital course, mention meds given and route, prescriptions, significant lab abnormalities, going to OR and other pertinent info. @ -Discharge. Rash is not present at this time. Images that were taken on the patient's phone are evaluated and do seem consistent with histamine reaction. Recommended treatment with antihistamines and steroids. Patient was given 40 additional milligrams of prednisone. She will be placed on a five-day course. Commended that she take hydroxizine every 6 hours as needed for pruritus. Instructed to follow-up with dermatology for further evaluation of her rash and return for any new or worsening symptoms. Patient was agreeable to this plan and she was discharged home in stable condition Undiagnosed new problem with uncertain prognosis? @ -yes Drug Therapy requiring intensive monitoring for toxicity (Heparin, Nitro, Insulin, Cardizem)? @ -No Were any procedures done? @ -No Diagnosis/symptom? @ -Acute urticaria Acute, or Chronic, or Acute on Chronic? @ -Acute Uncomplicated (without systemic symptoms) or Complicated (systemic symptoms)? @ -Complicated Side effects of treatment? @ -No Exacerbation, Progression, or Severe Exacerbation? @ -No Poses a threat to life or bodily function? How? (Chest pain, [place], [place], pneumonia, PE, COPD, DKA, ARF, appy, cholecystitis, CVA, Diverticulitis, Homicidal, Suicidal, threat to staff... and all critical care pts) @ -No (Wendy Almanza) Disposition <Raymond Christopher - Last Filed: 06/04/23 14:38> Is patient prescribed a controlled substance at d/c from ED?: No Time of Disposition: 15:27 <JamesonserenaWendy Tony - Last Filed: 06/05/23 02:15> Clinical Impression: Urticaria Disposition: HOME SELF-CARE Condition: Stable Instructions (If sedation given, give patient instructions): Urticaria (ED) Additional Instructions: Avoid any triggers possible. Follow up with one of the dermatologists recommended to see if they have any other treatment options for you. Return for any new or worsening symptoms Prescriptions: hydrOXYzine HCL [Atarax] 25 mg PO QID PRN #30 tab PRN Reason: Itching predniSONE [Deltasone] 20 mg PO BID #10 tab Referrals: None,Stated [Primary Care Provider] - 1-2 days Olivia Lynn MD [STAFF PHYSICIAN] - 1-2 days Dona Hernandez MD [STAFF PHYSICIAN] - 1-2 days
[2023-06-04] MEDS ORDERED: predniSONE 50 MG TAB PO STA (15:23)
[2023-06-04 16:21] VITALS: BP 120/94; PULSE 87; RESP 16; TEMP 98.7
== END 2023-06-04 16:05 | disposition home or self-care (01) ==
LOC: EC 13:52
DX: L50.9 Urticaria, unspecified (principal)
CPT/HCPCS: 99282; J7512

== ENCOUNTER → 2024-03-10 | Outpatient (CLI) | payer OTHER ==
[2024-03-10 15:35] LABS: HCT 43.1 % (37.2-46.3); HGB 14.1 g/dL (12.0-15.0); MCH 30.9 pg (27.0-32.0); MCHC 32.7 g/dL (32.0-37.0); MCV 94.3 FL (80.0-97.0); Mean Platelet Volume 11.4 FL (9.5-12.2); NRBC Per 100 WBC 0 X 10*3/uL (0.00-0.01); Platelet Count 248 X 10*3/uL (140-440); RBC 4.57 X 10*6/uL (4.10-5.20); RDW 12.8 % (11.5-14.5); WBC 5.28 X 10*3/uL (4.50-10.00)
[2024-03-10 15:48] LABS: ALT 15 U/L (8-44); AST 16 U/L (13-35); Albumin 4.8 g/dL (3.8-4.9); Albumin/Globulin Ratio 2.09 Ratio (1.60-3.17); Alkaline Phosphatase 68 U/L (41-126); BUN/Creat Ratio 10.78 Ratio (12.00-20.00); Blood Urea Nitrogen 9.7 mg/dL (9.0-27.0); C Reactive Protein <0.30 mg/dL (0.00-0.80); Calcium 9.6 mg/dL (8.7-10.3); Carbon Dioxide 26.7 mmol/L (21.6-31.8); Chloride 104 mmol/L (96-109); Globulin 2.3 g/dL (1.6-3.3); Glucose 88 mg/dL (70-110); Potassium 5.3 mmol/L (3.5-5.5); Sodium 140 mmol/L (135-145); Total Bilirubin 0.3 mg/dL (0.3-1.2); Total Protein 7.1 g/dL (6.2-8.2)
== END | disposition home or self-care (01) ==
LOC: LABWHC1 08:32
DX: K50.90 Crohn's disease, unspecified, without complications (principal); Z79.899 Other long term (current) drug therapy
CPT/HCPCS: 36415; 80053; 85027; 86140; 86480